=== PATIENT | male | born 1960 | race Two or more races ===

== ENCOUNTER 2017-11-08 05:59 | Day surgery (SDC) | payer OTHER ==
[~2017-11-08] VITALS: Ht 177.8 cm; Wt 108.0 kg
[2017-11-08 06:04] VITALS: Ht 177.8 cm; Wt 108.0 kg
[2017-11-08 06:45] VITALS: BP 133/86
[2017-11-08 07:19] VITALS: BP 139/92
[2017-11-08 07:52] LABS: BASOPHIL % 0.6 % (0-2); PLATELET COUNT 346 x10^3mcL (130-400); RED CELL DISTRIBUTION WIDTH 13.5 % (11.5-14.5)
[2017-11-08 08:00] LABS: microscopic required? NO
[2017-11-08 08:03] LABS: CALCIUM 8.9 mg/dL (8.5-10.1); CARBON DIOXIDE 26.3 mmol/L (21-32); CHLORIDE SERUM 108 mmol/L (98-107); CREATININE SERUM 0.8 mg/dL (0.7-1.3); GFR1 > 60 mL/min; GLUCOSE SERUM 98 mg/dL (74-106); POTASSIUM SERUM 4.3 mmol/L (3.5-5.1); SODIUM SERUM 143 mmol/L (136-145)
[2017-11-08 08:32] LABS: urine erythrocyte NEGATIVE (NEGATIVE)
[2017-11-08 13:41] VITALS: BP 135/78
== END 2017-11-08 12:05 | disposition home or self-care (01) ==
LOC: ED 05:59 → DS 06:38
PROVIDERS: Neuromusculoskeletal Medicine, Sports Medicine
PROC: 0PDT0ZZ Extraction of Right Finger Phalanx, Open Approach (ICD-10-PCS; 2017-11-08)
PROC: 0JBJ0ZZ Excision of Right Hand Subcutaneous Tissue and Fascia, Open Approach (ICD-10-PCS; principal; 2017-11-08 08:30)
DX: S62.610 Displaced fracture of proximal phalanx of right index finger (principal); S62.620 Displaced fracture of middle phalanx of right index finger; I96 Gangrene, not elsewhere classified; S64.49 Injury of digital nerve of other finger; S66.120S Laceration of flexor muscle, fascia and tendon of right index finger at wrist and hand level, sequela; C61 Malignant neoplasm of prostate; F17.210 Nicotine dependence, cigarettes, uncomplicated; W26.0XXS Contact with knife, sequela
CPT/HCPCS: J0690; J2250; J2270; J2405; J2704; J3010; J3490; J7120; Q0092